=== PATIENT | male | born 1945 | race Caucasian/White ===

== ENCOUNTER → 2023-04-25 10:41 | Outpatient (REF) | payer MEDICARE, SELFPAY | LOC: HWRAD 10:41 | PROVIDERS: ATTENDING PHYSICIAN Specialist; FAMILY PHYSICIAN Internal Medicine | DX: N28.89 Other specified disorders of kidney and ureter (principal) | CPT/HCPCS: 76775 ==

== ENCOUNTER → 2023-06-18 11:32 | Outpatient (REF) | payer MEDICARE, SELFPAY | LOC: DHCBS MAIN 11:32 | PROVIDERS: ATTENDING PHYSICIAN Internal Medicine Cardiovascular Disease; FAMILY PHYSICIAN Internal Medicine | DX: I25.118 Atherosclerotic heart disease of native coronary artery with other forms of angina pectoris (principal); I35.0 Nonrheumatic aortic (valve) stenosis | CPT/HCPCS: 93306 ==

== ENCOUNTER 2023-09-07 15:38 | Inpatient (IN) | payer MEDICARE, SELFPAY ==
[2023-09-07 09:50] VITALS: BP 121/69
[2023-09-07 10:35] LABS: % Basophils 0.5 % (0-2); % Eosinophils 0.9 % (0-6); % Immature Granulocytes 0.3 % (0-0.5); % Lymphocytes 9.2 % (20.5-51.1); % Monocytes 9.2 % (1.7-9.3); % Neutrophils 79.9 % (42.2-75.2); Absolute Basophils 0.1 10^3/uL (0-0.2); Absolute Eosinophils 0.1 10^3/uL (0-0.7); Absolute Neutrophils 8.5 10^3/uL (1.4-6.5); Hematocrit 34.3 % (39.0-52.0); Hemoglobin 12.1 g/dL (13.0-18.0); Mean Corp Hgb Conc. 35.3 g/dL (33.0-37.0); Mean Corpuscular Hgb 31.4 pg (27.0-31.0); Mean Corpuscular Volume 89.1 fL (80.0-94.0); Mean Platelet Volume 9.3 fL (7.4-10.4); Nucleated Red Blood Cells % 0 % (-); Platelet Count 245 10^3/uL (130-400); Red Blood Cell Count 3.85 10^6/uL (4.70-6.10); Red Cell Dist. Width 13.4 % (11.5-14.5); White Blood Cell Count 10.6 10^3/uL (4.8-10.8)
[2023-09-07 10:45] LABS: ALT (SGPT) 17 U/L (0-50); AST (SGOT) 27 U/L (17-59); Albumin 4.1 g/dl (3.5-5.0); Alkaline Phosphatase 108 U/L (38-126); Blood Urea Nitrogen 19 mg/dl (9-20); Calcium 9.4 mg/dl (8.4-10.2); Carbon Dioxide 25 mmol/L (22-30); Chloride 103 mmol/L (98-107); Glucose 100 mg/dl (70-99); Lipase 48 U/L (23-300); Sodium 138 mmol/L (135-145); Total Bilirubin 0.6 mg/dl (0.2-1.3); Total Protein 6.8 g/dl (6.3-8.2); eGFR 56.58
[2023-09-07] MEDS: OMNIPAQUE 50 ML PO (11:00)
--- NOTE | 2023-09-07 11:09 | ED.GENMED ---
History of Present Illness
General
Chief Complaint: Abdominal Symptoms
Source: patient, records, spouse, previous radiology exam and previous hospital records
Exam Limitations: none
Time Seen by Provider: 09/07/23 10:35
Nursing documentation reviewed up to this point in time: agreed with
Travel History
Have you had any contact with someone who has COVID-19?: No
Do you have any symptoms of coronavirus? Fever > 100 degrees, chills, cough, shortness of breath, sore throat, loss of taste or smell, muscle aches, or headache?: No
History of Present Illness
History of Present Illness:
78-year-old male history of ulcerative colitis status post resection by Dr. Brennan has ostomy, presents with abdominal pain and loose stool after eating for 3 to 4 days somewhat reminiscent of his prior C. difficile although he does not have a
malodorous smell, no fevers but he has having sweats, states he is not eating very much because when he eats he gets symptoms,
Past History
Past History
ED Past Medical History: CAD, HTN, Valvular disease and Other (Ulcerative colitis)
ED Past Surgical History: Bowel resection and Orthopedic
Social History
Tobacco: Former smoker
Alcohol: Occasional
Drug: None
Personal:
Living: with family
Employment: Retired
Family History
Family History: Other (Noncontributory)
Review of Systems
Review of Systems
All Other Systems: Not applicable
Constitutional: Reports fatigue and chills; Denies fever
EENT: Reports no symptoms
Respiratory: Reports no symptoms
Cardiac: Denies chest pain
ABD/GI: Reports abdominal pain and diarrhea; Denies nausea or constipated
: Reports no symptoms
Musculoskeletal: Reports no symptoms
Skin: Reports no symptoms
Neurological: Reports weakness
Endocrine: Reports no symptoms
Hematologic/Lymphatic: Reports no symptoms
Phy Exam
Physical Exam
Physical Exam:
Physical Exam
General: Nontoxic elderly man
Neck: Lips are slightly dry
Heart: s1/s2 regular rate and rhythm, no murmur. equal radial pulses.
Lungs: no acute respiratory distress. clear bilaterally
Abdomen: Soft mild diffuse tenderness ostomy looks patent but red stoma no stool in the bag
Neuro: alert and oriented. no focal neurological deficits
Skin: no rash
Psychiatric: well kept. interactive and cooperative
Extremities: no edema. no calf tenderness. negative homans. good distal pulses
Course
Orders/Labs/Results
Orders:
Orders
09/07/23 10:27
C-Reactive Protein Urgent
Comment: add-on
CMP [Comprehensive Metabolic Panel] Urgent
Complete Blood Count/With Diff Urgent
Erythrocyte Sed Rate Urgent
Comment: ADD=ON
Lipase Urgent
09/07/23 10:35
STOOL [C difficile Antigen & Toxins] Urgent
DIRK Source: Feces/Stool
Specimen Description:
Date Specimen was Collected: 09/07/23
Time Specimen was Collected: 14:33
Stool Culture Urgent
DIRK Source: Feces/Stool
Specimen Description:
Date Specimen was Collected: 09/07/23
Time Specimen was Collected: 14:33
09/07/23 10:57
CT Abd/pel W Iv And Oral Contr Urgent
Comment:
Reason For Exam: post [ramdoa; [aom
Iohexol [Omnipaque] See Protocol PO NOW STA
09/07/23 10:58
0.9% Sodium Chloride 1000 ml [Nss] 1,000 ml IV BOLUS
09/07/23 14:34
Add On- LAB Urgent
Tests Added?: esr/crp
Abnormal Lab Results
09/07/23
10:27
RBC 3.85 L 10^6/uL
(4.70-6.10)
Hgb 12.1 L g/dL
(13.0-18.0)
Hct 34.3 L %
(39.0-52.0)
MCH 31.4 H pg
(27.0-31.0)
Absolute Neuts (auto) 8.5 H 10^3/uL
(1.4-6.5)
Absolute Lymphs (auto) 1.0 L 10^3/uL
(1.2-3.4)
Absolute Monos (auto) 1.0 H 10^3/uL
(0.1-0.6)
Neutrophils % 79.9 H %
(42.2-75.2)
Lymphocytes % 9.2 L %
(20.5-51.1)
Glucose 100 H mg/dl
(70-99)
09/07/23 10:27
09/07/23 10:27
Vital Signs
Initial and Last Documented VS:
Initial Vital Signs
Temp Pulse Resp BP Pulse Ox
98.2 F 83 16 121/69 99
09/07/23 09:50 09/07/23 09:50 09/07/23 09:50 09/07/23 09:50 09/07/23 09:50
Last Documented Vital Signs
Temp Pulse Resp BP Pulse Ox
98.2 F 77 16 120/70 99
09/07/23 09:50 09/07/23 13:57 09/07/23 13:57 09/07/23 13:57 09/07/23 13:57
MDM/Problems Addressed
Differential Diagnosis Includes:
Colitis, enteritis, C. difficile, other
MDM/Problems Addressed:
Abdominal pain, diarrhea
Chronic conditions affecting care:
Ulcerative colitis status postresection
Chronic conditions affecting care: Previous abdomnial surgery
Acute Exacerbation and/or Progression of Chronic Illness:
Ulcerative colitis status post resection
Acute Exacerbation and/or Progression of Chronic Illness: Previous abdomnial surgery
*Critical Care Note
Total Time (30-74mins, 75-104mins- exclusive of procedures): Not Applicable
Update Note
Update Note:
2:[address] report noted labs noted, do not suspect this is appendicitis, suspect more colitis, symptoms or diarrhea postprandial pain
Will hold on antibiotics until we get his culture back he was just able to give a specimen patient states has been unable to eat, complex past medical history advanced age suspect we recommend the hospital
ED Attending Note
-
Portions of this chart may have been created with voice recognition software.� Occasional wrong word or��sound alike� substitutions may have occurred due to the inherent limitations of voice recognition software.
Discharge Plan
Departure
Patient Disposition: Admit
Date of Disposition: 09/07/23
Time of Disposition: 14:44
Admit to: Med/Surg
Presentation/result/management discussed w/ accepting MD/DO: Hospitalist
Condition: Good
Discharge Problem:
Ulcerative colitis
Prescriptions:
No Action
atorvastatin 80 MG tablet
80 mg PO HS
tamsulosin 0.4 MG capsule
0.4 mg PO DAILY
escitalopram oxalate 10 MG tablet
10 mg PO DAILY
calcium carbonate [Oyster Shell Calcium 500] 500 MG tablet
1,000 mg PO QPM
allopurinol 100 MG tablet
200 mg PO HS
solifenacin 5 MG tablet
5 mg PO DAILY
MegaRed Advanced [place]-3 Algae 1 EACH capsule
2 ea PO DAILY
Hold Instructions: Resume on 05/29/22.
psyllium husk 0.52 gram Capsule
1.04 g PO TID
amlodipine 2.5 MG tablet
2.5 mg PO DAILY Qty: 30 0RF
Rx Instructions:
HOLD if systolic blood pressure <130 while on Oxycodone.
cetirizine [Aller-Sulema] 10 mg Tablet
10 mg PO DAILY
Centrum Silver Tablet
1 tab PO DAILY
mesalamine 1.2 gram Tablet,Delayed Release (Dr/Ec)
2.4 g PO DAILY
triamcinolone acetonide 0.147 mg/gram Aerosol
1 spray TOPICAL DAILY
aspirin 81 mg Capsule
81 mg PO DAILY
Probiotic
1 tab PO DAILY
acetaminophen 325 MG tablet
650 mg PO Q4HWA PRN (Reason: pain)
Rx Instructions:
DO NOT exceed >4000 mg daily.
senna 8.6 mg capsule
17.2 mg PO DAILY
Referrals:
Shane Gusman MD [Family Provider] -
Interventions
Interventions:
*Risk Screen - Suicide Last Done: 09/07/23 09:59
*Neglect/Abuse Screening Last Done: 09/07/23 09:59
ED- Fall Risk Assessment Last Done: 09/07/23 10:25
*ED COVID-19 Vaccine History Last Done: 09/07/23 09:50
KL-Kbvpls-Tfazsahckx Assessment Last Done: 09/07/23 10:24
Discharge Date and Time
Print Language: THAI
[2023-09-07] MEDS: NSS 1000 IV ×3 (11:12→20:40)
[2023-09-07 13:57] VITALS: BP 120/70
--- NOTE | 2023-09-07 14:48 | HPS.HSE ---
Family Physician
-
Family Physician: Shane Gusman
Chief Complaint
-
abd pain
History of Present Illness
78-year-old man with a history of ulcerative colitis (status post resection by Dr. Brennan, has ostomy), presents with abdominal pain and loose stool after eating, for 3 to 4 days. Symptms are reminiscent of his prior C. difficile infection. No
fevers, but he has been having sweats, states he is not eating very much because when he eats he gets symptoms. In the ED, the CT showed:
Mild colonic wall thickening/colitis is suggested most pronounced involving the transverse colon and descending colon.
No evidence of pneumatosis. No evidence of bowel obstruction.
Mild circumferential thickening at the origin of the appendix at the posterior inferior margin of the cecum.
The remainder of the appendix demonstrates a small amount of fluid within the lumen
top normal in diameter measuring approximately 6.5 mm without additional wall thickening or periappendiceal soft tissue stranding.
This may be related to minor inflammatory thickening of the cecum, as opposed to primary appendiceal thickening/appendicitis.
Minimal/trace free fluid in the pelvis. No focal collection or abscess.
Stable small, 12 mm right renal lesion. Although difficult to fully characterize based on small size, this most likely represents a complex (hemorrhagic or proteinaceous) cyst.
Hypovascular solid mass not entirely excluded, though felt to be less likely.
Anterior left abdominal wall diverting colostomy.
Small umbilical hernia containing fat measuring 2 cm.
Stable small hepatic cysts and small hiatal hernia.
During my exam he was comfortable and had no new complaints.
Medical History
Past Medical History
Past Medical History: Reports Other
Additional Past Medical History:
CAD,
essential HTN,
Valvular disease
Ulcerative colitis
Bowel resection
Orthopedic surgery
Ulcerative rectosigmoiditis with rectal bleeding
Mitral regurgitation and aortic stenosis
Elevated prostate specific antigen
Degenerative lumbar spinal stenosis
Chronic left lumbar radiculopathy
C. difficile colitis
GOUT
hyperlipedimia
Past Surgical History: Reports Other
Additional Past Surgical History:
See above
Social History
Tobacco: Non-smoker
Alcohol: Occasional
Drug: None
Personal:
Living: With Family
Family History
Family History: Not pertinent
Allergies / Home Medications
Allergies reflects when Allergies were last updated in [facility].
Home Medications with original date entered in [facility]
Allergy/Medication List:
Allergies
Allergy/AdvReac Type Severity Reaction Status Date / Time
chlorhexidine Allergy Rash Verified 09/07/23 09:52
clopidogrel [From Plavix] Allergy Itching Verified 09/07/23 09:52
nabumetone Allergy Hives Verified 09/07/23 09:52
naproxen Allergy stay awasy Verified 09/07/23 09:52
from due
ulcertive
colitis
NSAIDS (Non-Steroidal Allergy 'stays Verified 09/07/23 09:52
Anti-Inflamma away from
these due
to
ulcerative
colitis'
povidone-iodine Allergy Rash Verified 09/07/23 09:52
[From Betadine]
Home Medications
atorvastatin 80 mg tablet 80 mg PO HS High cholesterol 01/13/18
escitalopram oxalate 10 mg tablet 10 mg PO DAILY Gastrointestinal issue 01/13/18
tamsulosin 0.4 mg capsule 0.4 mg PO DAILY Urinary issue 01/13/18
calcium carbonate (Oyster Shell Calcium 500) 1,000 mg PO QPM Supplement 04/30/18
allopurinol 100 mg tablet 200 mg PO HS Gout 05/22/20
omega-3s 330 mg-dha and epa 300 mg-algal oil 600 mg capsule (MegaRed Advanced [place]-3 Algae) 2 ea PO DAILY Supplement 05/22/20
solifenacin 5 mg tablet 5 mg PO DAILY Urinary issue 05/22/20
psyllium husk 0.52 gram capsule 1.04 g PO TID 05/14/22
amlodipine 2.5 mg tablet 2.5 mg PO DAILY Blood pressure #30 tabs 05/22/22
Probiotic 1 tab PO DAILY 09/07/23
acetaminophen 325 mg tablet 650 mg PO Q4HWA PRN pain 09/07/23
aspirin 81 mg capsule 81 mg PO DAILY 09/07/23
cetirizine 10 mg tablet (Aller-Sulema) 10 mg PO DAILY 09/07/23
mesalamine 1.2 gram tablet,delayed release 2.4 g PO DAILY 09/07/23
bwokqpxwsiju-nmdkjdzo-muuehw tablet 1 tab PO DAILY 09/07/23
sennosides 8.6 mg capsule (senna) 17.2 mg PO DAILY 09/07/23
triamcinolone acetonide 0.147 mg/gram topical aerosol 1 spray topical DAILY 09/07/23
Review of Systems
-
History Source: Patient
A 12 point ROS was completed and negative except as noted: Yes
Physical Exam
Vital Signs
Vital Signs
Temp Pulse Resp BP Pulse Ox
98.2 F 77 16 120/70 99
09/07/23 09:50 09/07/23 13:57 09/07/23 13:57 09/07/23 13:57 09/07/23 13:57
Physical Exam
General: Well Developed, Well Nourished, No Apparent Distress, Comfortable and Conversant
HEENT: NormoCephalic, Moist mucous membranes, Atraumatic, No Ptosis, Nose Appears Normal and Ears Appear Normal
Respiratory: Clear
Cardiac: S1/S2, Regular Rhythm and Murmur
GI: Soft, Non Tender and Non Distended
Musculoskeletal: No Clubbing, No Cyanosis and No Edema
Skin: Warm and Dry; No Rash or Jaundice
Neuro: Awake, Alert, Oriented and AO x 3
Psych: Calm
Laboratory Results
-
09/07/23 10:27
09/07/23 10:27
Laboratory Results
Total Bilirubin 0.6 mg/dl (0.2-1.3) 09/07/23 10:27
AST 27 U/L (17-59) 09/07/23 10:27
ALT 17 U/L (0-50) 09/07/23 10:27
Alkaline Phosphatase 108 U/L (38-126) 09/07/23 10:27
Lipase 48 U/L (23-300) 09/07/23 10:27
Data Reviewed
-
Lab Data: Labs Reviewed by me
Impression/Plan
-
IMPRESSION:
78man wtih complex GI history comes in with colitis. Pertinent CT findings:
Mild colonic wall thickening/colitis is suggested most pronounced involving the transverse colon and descending colon.
No evidence of pneumatosis. No evidence of bowel obstruction.
Mild circumferential thickening at the origin of the appendix at the posterior inferior margin of the cecum.
The remainder of the appendix demonstrates a small amount of fluid within the lumen
top normal in diameter measuring approximately 6.5 mm without additional wall thickening or periappendiceal soft tissue stranding.
This may be related to minor inflammatory thickening of the cecum, as opposed to primary appendiceal thickening/appendicitis.
Minimal/trace free fluid in the pelvis. No focal collection or abscess.
Stable small, 12 mm right renal lesion. Although difficult to fully characterize based on small size, this most likely represents a complex (hemorrhagic or proteinaceous) cyst.
Hypovascular solid mass not entirely excluded, though felt to be less likely.
Anterior left abdominal wall diverting colostomy.
Small umbilical hernia containing fat measuring 2 cm.
Stable small hepatic cysts and small hiatal hernia.
PLAN:
1. Colitis. Check for c-diff toxin
If toxin positive --> po and IV vancomycin
If toxin negative --> discuss case with GI for best abx (given h/o multiple c-diff episodes)
GI consult
NPO for now, advance to clears once tolerated
If C-diff neg, motility control
IV fluids while NPO
Full code
VCD for DVTp
[2023-09-07 15:06] LABS: Erythrocyte Sed Rate 32 mm/hour (0-20)
--- NOTE | 2023-09-07 16:45 | PTCARENOTE ---
09/06- Patient transferred and oriented to unit without issue. Patient on Contact Precautions d/t CDiff Infection; AAOX3, Skin CDI, Patient fully independent. Colostomy stoma pink, with ostomy side CDI, draining liquid bowens stool. Patient has
without complaints at this time.
[2023-09-07 17:04] VITALS: BP 136/75; BMI 27.4
[2023-09-07] MEDS: FLOMAX 0.400000000000000022 MG PO (17:25)
[2023-09-07] MEDS: NORVASC 2.5 MG PO (17:26)
[2023-09-07] MEDS: VISBIOME 1 CAP PO (17:26)
[2023-09-07] MEDS: ZYLOPRIM 200 MG PO (17:31)
[2023-09-07] MEDS: ASACOL, DELZICOL DR 2400 MG PO (17:32)
[2023-09-07] MEDS: OSCAL CAL 500 1000 MG PO (17:33)
[2023-09-07] MEDS: QUESTRAN 4 GRAM PO ×2 (17:34→20:24)
[2023-09-07] MEDS: VESICARE 5 MG PO (17:35)
[2023-09-07] MEDS: FIRVANQ 500 MG PO ×2 (18:02→23:16)
[2023-09-07] MEDS: LIPITOR 80 MG PO (22:32)
[2023-09-07] MEDS: METAMUCIL, KONSYL 1 PACKET PO (22:32)
[2023-09-07] MEDS: FLAGYL 500 MG 100 IV (23:16)
[2023-09-07 23:27] VITALS: BP 133/57
[2023-09-08] MEDS: FIRVANQ 500 MG PO ×4 (05:43→23:02)
[2023-09-08 07:00] VITALS: BP 114/62
[2023-09-08 07:01] LABS: Hematocrit 31.5 % (39.0-52.0); Hemoglobin 10.6 g/dL (13.0-18.0); Mean Corp Hgb Conc. 33.7 g/dL (33.0-37.0); Mean Corpuscular Hgb 31.3 pg (27.0-31.0); Mean Corpuscular Volume 92.9 fL (80.0-94.0); Mean Platelet Volume 9.3 fL (7.4-10.4); Platelet Count 224 10^3/uL (130-400); Red Blood Cell Count 3.39 10^6/uL (4.70-6.10); Red Cell Dist. Width 13.2 % (11.5-14.5); White Blood Cell Count 7.7 10^3/uL (4.8-10.8)
[2023-09-08 07:45] LABS: Blood Urea Nitrogen 14 mg/dl (9-20); Calcium 9.1 mg/dl (8.4-10.2); Carbon Dioxide 26 mmol/L (22-30); Chloride 105 mmol/L (98-107); Estimated Creatinine Clearance 53 ml/min; Glucose 79 mg/dl (70-99); Potassium 4.2 mmol/L (3.5-5.1); Sodium 139 mmol/L (135-145); eGFR > 60.00
--- NOTE | 2023-09-08 08:47 | W.PN.HOSP.TC ---
Addendum entered and electronically signed by Jose Lazo MD 09/08/23 18:16:
RN reports he had some cp and used nitro and now cp improved. Obtain ekg and trend trop.
Original Note:
Today's Communication/Plan
-
Cont vanco/metronidazole
Assessment / Plan
Assessment / Plan
Physical exam:
General: Well Developed, Well Nourished and No Apparent Distress
HEENT: Normocephalic, Atraumatic and Moist Mucous Membranes
Respiratory: Clear to Auscultation; Negative Wheezes, Rales or Rhonchi
Cardiac: Regular Rhythm and S1/S2
GI: Soft, Nontender and Nondistended
Musculoskeletal: No Clubbing, No Cyanosis and No Edema
Neuro: Awake, Alert and Oriented
Psych: Calm
A/P:
78man wtih complex GI history comes in with colitis. Pertinent CT findings:
Mild colonic wall thickening/colitis is suggested most pronounced involving the transverse colon and descending colon.
No evidence of pneumatosis. No evidence of bowel obstruction.
Mild circumferential thickening at the origin of the appendix at the posterior inferior margin of the cecum.
The remainder of the appendix demonstrates a small amount of fluid within the lumen
top normal in diameter measuring approximately 6.5 mm without additional wall thickening or periappendiceal soft tissue stranding.
This may be related to minor inflammatory thickening of the cecum, as opposed to primary appendiceal thickening/appendicitis.
Minimal/trace free fluid in the pelvis. No focal collection or abscess.
Stable small, 12 mm right renal lesion. Although difficult to fully characterize based on small size, this most likely represents a complex (hemorrhagic or proteinaceous) cyst.
Hypovascular solid mass not entirely excluded, though felt to be less likely.
Anterior left abdominal wall diverting colostomy.
Small umbilical hernia containing fat measuring 2 cm.
Stable small hepatic cysts and small hiatal hernia.
PLAN:
1. Colitis. Check for c-diff toxin and came back positive --> po vancomycin high doses 500 mg every 6 hours and IV Flagyl. Would deescalate soon but given recurrent history keep the same for now.
-Patient tells me he has history of about 5 times episodes of C. difficile. He is going through vancomycin, Dificid, and also fecal transplant at [place] x 2.
-f/u GI further recommendations
-GI consulted
CLD--> advance to Full Liquid today
IV fluids to stop
Complex Past Medical hx--> stable co-morbidities for now.
Full code
VCD for DVTp
Anticipated Discharge: > 48 hours
Subjective/Interval History
-
Date of Service: September 08, 2023
Still having diarrhea today. Overall feels better.
Objective Data
-
Labs:
Laboratory Results
09/08/23
06:18
WBC 7.7
Hgb 10.6 L
Hct 31.5 L
Plt Count 224
Sodium 139
Potassium 4.2
Chloride 105
Carbon Dioxide 26
BUN 14
Creatinine 1.2
Glucose 79
Calcium 9.1
Vital Signs:
Vital Signs
Temp Pulse Resp BP Pulse Ox
98.0 F 64 14 114/62 95
09/08/23 07:00 09/08/23 07:00 09/08/23 07:00 09/08/23 07:00 09/08/23 07:00
I&O
09/07/23 09/08/23 09/09/23
06:59 06:59 06:59
Intake Total 1100 / 1100
Output Total 40 / 40
Balance 1060 / 1060
[2023-09-08] MEDS: ZYRTEC 10 MG PO (08:57)
[2023-09-08] MEDS: ASPIR LOW (ENTERIC COATED) 81 MG PO (08:57)
[2023-09-08] MEDS: THERAGRAN 1 TABLET PO (08:57)
[2023-09-08] MEDS: QUESTRAN 4 GRAM PO (08:57)
[2023-09-08] MEDS: FLAGYL 500 MG 100 IV ×3 (08:57→23:02)
[2023-09-08] MEDS: METAMUCIL, KONSYL 1 PACKET PO ×2 (08:57→17:24)
[2023-09-08] MEDS: LEXAPRO 10 MG PO (08:57)
--- NOTE | 2023-09-08 10:27 | CM ---
national facilities manager reviewed patient's chart and met with patient and patient lives with his spouse in a 2 story home, per patient has has master bed and bathroom on 1st floor, patient is independent with adl's and ambulation, no dme, patient drives,
patient has a prescription plan and uses [facility] pharmacy.
PCP: Dr. Gusman
Plan; Home with spouse when stable.
--- NOTE | 2023-09-08 13:08 | WOUNDNOTE ---
DES RN NOTE: Asked to see patient for ostomy needs. End Colostomy done [address] Brennan. Patient is independent with care, has own supplies and no issues with leakage or skin damage. Will sign off, nurse Carrie lambert.
--- NOTE | 2023-09-08 15:18 | CON.GI ---
Addendum entered and electronically signed by Carlos Mota MD 09/08/23 17:51:
I saw and examined the patient.
The COVER INSPECTOR's note was reviewed and I agree with the note.
-- C. difficile colitis with recent abx use
-- History of UC s/p bowel resection with end colostomy. clinical remission On Lialda
plan
Patient was started on vancomycin/Flagyl by medical team. Will continue it for now. Awaiting ID eval.
Full liquid diet
Adequate hydration
Monitor stool frequency
Continue mesalamine
Original Note:
Consultation
-
Date/Time Consultation Requested: 09/07/23 1650
Date/Time Consultation Performed: 09/08/23 1500
Requesting Provider: Dr. Moran
Performing Provider: Dr. Mota/BYRON Young
Reason for Consultation: Cdiff
Medical History
Chief Complaint / HPI
Chief Complaint: diarrhea
History of Present Illness:
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
hernia, history of C. difficile s/p FMT x 2, CAD, aortic stenosis, asthma, GERD, BPH, gout, hyperlipidemia, recent right ear infection status posttreatment with 'Z-Kevyn' in June who presents to the emergency room with multiple episodes of diarrhea.
Asked to evaluate for C. difficile colitis. The patient states that he was treated for a right ear infection with Z-Kevyn in June by an ENT. He did not go on vancomycin prophylactically during this time. He did not call our office or his PCPs
office. He does take a daily probiotic. He has not had any issues with his bowels since that time. He states he usually has either no bowel movement or up to 3 solid bowel movements daily. He is on Lialda for history of proctosigmoiditis. He
will occasionally see mucus in his stoma. He states that he started passing hard balls of stool a couple days prior. Following this he started having multiple episodes of abdominal cramping followed by watery bowel movements. This was then
reminiscent of the time he has had C. difficile. He kept feeling his ostomy bag multiple times yesterday. Today was foul-smelling but less in quantity. The patient was started on vancomycin as well as Flagyl. He has been treated by infectious
disease in the past. He states he even went down to the 'infusion room'. He has had 2 FMT's in the past. The patient states that he usually does best on vancomycin. He was started on Dificid in the past for presumed C. difficile in January
2021. He denies any fevers, chills, nausea, vomiting, melena, hematochezia, dysphagia or dyne aphasia. He denies any early satiety or unintentional weight loss. He currently has a small amount of light brown liquid stool in his ostomy bag. Stool
is positive for toxigenic C. difficile. WBC 7.7 down from 10.6, hemoglobin 10.6, hematocrit 31.5, platelets 224, ESR 32, CRP 51.3, sodium 139, potassium 4.2, chloride 105, CO2 26, BUN 14, creatinine 1.2
Past Medical History
Past Medical History: Other (Mild stenosis, right carotid bulb.�����Asthma.�����GERD.�����Ulcerative colitis.�����Benign prostatic hyperplasia.�����Hypertension.�����Aortic sclerosis.�����Mitral regurgitation.�����recurrent C. difficile w/ fecal
transplant x2.�����Lower back disc issues.�����Anxiety.�����Gout.�����Torn rotator )
Past Surgical History: Other (Left knee repair-1965�����Bilat cataract repair 2009�����Bilat carpal tunnel repair 2004�����Right rotator cuff repair 03/2012�����DTH Cardiac Catherization 03/2017�����Flex sigmoidoscopy 11/2017�����fecal transplant x
2 at [facility] Jan 2018 & Mar 2018�����Left L4 and L5 TFESI 06/09/2018�����Bilateral )
Social History
Tobacco: Non-Smoker
Alcohol: None
Drug: None
Personal:
Living: With Family
Family History
Family History: Other (No fam Hx GI malignancy or IBD)
Allergies / Home Medications
Allergy/AdvReac Type Severity Reaction Status Date / Time
chlorhexidine Allergy Rash Verified 09/07/23 09:52
clopidogrel [From Plavix] Allergy Itching Verified 09/07/23 09:52
nabumetone Allergy Hives Verified 09/07/23 09:52
naproxen Allergy stay awasy Verified 09/07/23 09:52
from due
ulcertive
colitis
NSAIDS (Non-Steroidal Allergy 'stays Verified 09/07/23 09:52
Anti-Inflamma away from
these due
to
ulcerative
colitis'
povidone-iodine Allergy Rash Verified 09/07/23 09:52
[From Betadine]
�Medication �Instructions �Recorded
atorvastatin 80 mg tablet 80 mg PO HS High cholesterol 01/13/18
escitalopram oxalate 10 mg tablet 10 mg PO DAILY Depression 01/13/18
tamsulosin 0.4 mg capsule 0.4 mg PO QPM Urinary issue 01/13/18
allopurinol 100 mg tablet 200 mg PO QPM Gout 05/22/20
solifenacin 5 mg tablet 5 mg PO QPM Urinary issue 05/22/20
Lactobac no.2-Bifidobac no.1-S. 1 cap PO QPM Supplement 09/07/23
thermo 112.5 billion cell capsule
(Visbiome)
Metamucil 2 cap PO TID Constipation 09/07/23
amlodipine 2.5 mg tablet 2.5 mg PO QPM Blood pressure 09/07/23
aspirin 81 mg tablet,delayed 81 mg PO DAILY Blood Clot 09/07/23
release Prevention/Tx
calcium carbonate 1,000 mg PO QPM Supplement 09/07/23
cetirizine 10 mg tablet (Aller-Sulema) 10 mg PO DAILY Allergies 09/07/23
mesalamine 1.2 gram tablet,delayed 2.4 g PO QPM Gastrointestinal Issue 09/07/23
release
ljrjdpxdwong-fwrridlj-oilkgu tablet 1 tab PO DAILY Supplement 09/07/23
sennosides 8.6 mg tablet (senna) 17.2 mg PO QPM Constipation 09/07/23
varenicline 0.03 mg/spray nasal 1 spray intranasal BID Dry eye 09/07/23
spray (Tyrvaya) disase
Review of Systems
-
All other systems: A 12 pt ROS was Negative except as stated above in HPI
Vital Signs
Temp Pulse Resp BP Pulse Ox
98.0 F 64 14 114/62 95
09/08/23 07:00 09/08/23 07:00 09/08/23 07:00 09/08/23 07:00 09/08/23 07:00
Physical Exam
Exam
General: No Apparent Distress
HEENT: Anicteric
Respiratory: Clear (Anterior)
Cardiac: Regular Rhythm
GI: Soft, Non Tender, Non Distended, Normal Bowel Sounds and Other (Ostomy left sided, small amount of light brown liquid stool, small amount of mucus and tissue)
Skin: Warm and Dry
Neuro: AO x 3
Psych: Calm
Results
WBC 7.7 10^3/uL (4.8-10.8) 09/08/23 06:18
Hgb 10.6 g/dL (13.0-18.0) L 09/08/23 06:18
Hct 31.5 % (39.0-52.0) L 09/08/23 06:18
MCV 92.9 fL (80.0-94.0) 09/08/23 06:18
Plt Count 224 10^3/uL (130-400) 09/08/23 06:18
Absolute Neuts (auto) 8.5 10^3/uL (1.4-6.5) H 09/07/23 10:27
Sodium 139 mmol/L (135-145) 09/08/23 06:18
Potassium 4.2 mmol/L (3.5-5.1) 09/08/23 06:18
Chloride 105 mmol/L (98-107) 09/08/23 06:18
Carbon Dioxide 26 mmol/L (22-30) 09/08/23 06:18
BUN 14 mg/dl (9-20) 09/08/23 06:18
Creatinine 1.2 mg/dL (0.7-1.3) 09/08/23 06:18
Calcium 9.1 mg/dl (8.4-10.2) 09/08/23 06:18
Total Bilirubin 0.6 mg/dl (0.2-1.3) 09/07/23 10:27
AST 27 U/L (17-59) 09/07/23 10:27
ALT 17 U/L (0-50) 09/07/23 10:27
Alkaline Phosphatase 108 U/L (38-126) 09/07/23 10:27
Lipase 48 U/L (23-300) 09/07/23 10:27
Diagnostic Image Results:
CT Abd/Pelvis with IV/Oral contrast:
IMPRESSION:
Mild colonic wall thickening/colitis is suggested most pronounced involving the transverse colon and descending colon. No evidence of pneumatosis. No evidence of bowel obstruction.
Mild circumferential thickening at the origin of the appendix at the posterior inferior margin of the cecum. The remainder of the appendix demonstrates a small amount of fluid within the lumen, top normal in diameter measuring approximately 6.5 mm
without additional wall thickening or periappendiceal soft tissue stranding. This may be related to minor inflammatory thickening of the cecum, as opposed to primary appendiceal thickening/appendicitis. Recommend clinical correlation.
Minimal/trace free fluid in the pelvis. No focal collection or abscess.
Stable small, 12 mm right renal lesion. Although difficult to fully characterize based on small size, this most likely represents a complex (hemorrhagic or proteinaceous) cyst. Hypovascular solid mass not entirely excluded, though felt to be less
likely. Recommend continued imaging surveillance.
Anterior left abdominal wall diverting colostomy.
Small umbilical hernia containing fat measuring 2 cm.
Stable small hepatic cysts and small hiatal hernia.
Prior GI Procedures:
---02/2022 - ER for shingles: CT scan - large amount of large, no bowel wall thickening, small parastomal hernia.�������
----12/2021 Colonoscopy through the stoma for history of ulcerative proctocolitis currently on 2 of Lialda with blood in the stoma: Adequate prep after significant lavage. End sigmoid colostomy with inflammation at the first 3 cm with biopsies
consistent with chronic active colitis possibly irritation from the stoma site. We will treat with topical steroid. Otherwise endoscopically normal to the cecum with normal biopsies throughout. Normal terminal ileum.�������
----10/2020 Colonoscopy through ostomy for hx of UC and ICV adenoma: Adequate prep to the terminal ileum. Healthy-appearing colon throughout with normal biopsies throughout with no evidence of acute or chronic colitis. Normal terminal ileum. No
evidence of remaining adenoma on the IC valve. Repeat colonoscopy in 2 years. Continue 2 pills of mesalamine for maintenance of remission�������
----04/2020: colonoscopy with Srinivasa: ileocecal valve, 8 mm adenoma with low-grade dysplasia, few small cecal pseudopolyps, endoscopically no inflammation. biopsies in the cecum showed chronic colitis, negative for dysplasia�������
----02/2020 colonoscopy Chronic refractory ulcerative proctitis. On Lialda and Stelara: poor prep to the terminal ileum. Large amount of stool throughout the colon. Stool negative for C. difficile. Severe inflammation up to 15 cm. Moderately
ulcerated stenosis at 10 cm from the anal verge. Biopsies showed severe active colitis but no dysplasia. Proximal to 15 cm was endoscopically normal. Difficult to view ileocecal valve polyp biopsied with low-grade dysplasia. Unable to remove. Should
be endoscopically removable with Dr. Bernabe if needed. Appt with Colorectal tomorrow.
--Last Entyvio 04/21/19.�Taking 4 Lialda, enemas as tolerated. Vanco 250mg once daily.������
--overnight stay on 05/04/18 for recurrent C. difficile�.No abdominal pain, cramping, nocturnal symptoms.�������
--Prior therapy: steroids and 5 ASA, Asacol 2400 mg tid , Uceris 9mg daily and Canasa. Humira�������
--Entyvio q6wks, Lialda 4 pills, tacro enemas (started 04/22/19)�������
--Prior cdiff x 4��s/P fecal transplant with Dr. Dixon on 02/06/18 and again on 03/27/18.�The best he has done was after his 1st fecal tranplant in Jan. He had 2 weeks with formed stools then the cdiff returned
�--03/2019 flexible sigmoidoscopy, chronic ulcerative proctosigmoiditis on Entyvio q6wks, steroid suppositories and Vanco for C. difficile suppression.�������mild rectal stricture on digital rectal exam. Severe, Beckman 3 from anus to rectum, normal
mucosa from 16-40 cm proximal to the anus.�biopsies: All negative for CMV, negative for dysplasia. Rectal biopsies up to 15 cm are moderate to severe chronic active colitis with ulceration and granulation tissue. 25 cm mild chronic inflammation, no
active. 35 cm normal�PLAN: tacrolimus enemas and change biologic�������
--07/2018 Vedo level: 11.3�������
--04/30/18: +cdiff toxin with symptoms 10+loose BMs�������
--04/22/18: Humira level on once weekly: 26�������
--03/27/18: repeat FMT, no improvement�������
--02/06/18: [facility] with Dr. Dixon: colonoscopy. Inflammation found from anus to rectum, graded as July 24. Fecal microbiota transplant performed in the transverse descending and cecum. No specimens collected. Stopped vancomycin - did well for 2
weeks�������
--12/11/17 flex sig: marked chronic and active colitis cryptitis, ulceration and architectural distortion�������
--09/09/17, positive C. difficile colitis�������
--08/25/2017 MRI for persistently elevated alkaline phosphatase: normal-appearing biliary tree, no stenosis or dilation to suggest sclerosing cholangitis�������
---05/22/17: flexible sigmoidoscopy: moderate to severe ulcerative colitis from the rectum to his proximal as reached�������
---colonoscopy with Dr. Puente 2014 revealed ulcerative proctosigmoiditis without dysplasia.
Assessment / Plan
-
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
hernia, history of C. difficile s/p FMT x 2, CAD, aortic stenosis, asthma, GERD, BPH, gout, hyperlipidemia, recent right ear infection status posttreatment with 'Z-Kevyn' in June who presents to the emergency room with multiple episodes of diarrhea.
Asked to evaluate for C. difficile colitis.
Impression:
C. difficile colitis
Ulcerative proctosigmoiditis
Plan:
-Continue vancomycin p.o. for now. Patient hesitant to start Dificid. Would prefer to stay on Vanco at the present time.
-Recommend ID consultation, patient with multiple episodes of C. difficile refractory to treatment in the past.
-Continue full liquid diet
-Continue mesalamine
-Further recommendation to be forthcoming
Data Reviewed
-
CT Scan: Report Reviewed by me
Old Records: Reviewed
-
-
Thank you for consultation and allowing me to participate in the patient's care. Please call the conflict resolution professional GI physician during the after hours with any questions or concerns.
[2023-09-08 15:42] VITALS: BP 122/65
[2023-09-08] MEDS: NORVASC 2.5 MG PO (17:24)
[2023-09-08] MEDS: OSCAL CAL 500 1000 MG PO (17:24)
[2023-09-08] MEDS: VISBIOME 1 CAP PO (17:24)
[2023-09-08] MEDS: ASACOL, DELZICOL DR 2400 MG PO (17:24)
[2023-09-08] MEDS: ZYLOPRIM 200 MG PO (17:24)
[2023-09-08] MEDS: VESICARE 5 MG PO (17:24)
[2023-09-08] MEDS: FLOMAX 0.400000000000000022 MG PO (17:25)
--- NOTE | 2023-09-08 17:45 | PTCARENOTE ---
Pt noted to have a bottle of NTG sl on his bedside table. When questioned about it, pt stated he'd had chest pain at 5pm for approximately 10mins, that resolved on its own. He did not taken any NTG sl. Dr. Lazo made aware, EKG and troponin
ordered and done. Pt denies chest pain at present.
[2023-09-08] MEDS: NSS IV ×2 (18:20→18:21)
[2023-09-08 19:19] LABS: Troponin I < 0.012 ng/ml
[2023-09-08] MEDS: LIPITOR 80 MG PO (22:43)
[2023-09-08 23:02] VITALS: BP 132/66
[2023-09-08] MEDS: COMPAZINE 5 MG IV (23:02)
[2023-09-09 01:59] LABS: Troponin I < 0.012 ng/ml
[2023-09-09] MEDS: FIRVANQ 500 MG PO ×2 (05:21→11:23)
[2023-09-09 07:00] VITALS: BP 120/70
[2023-09-09 07:24] LABS: % Basophils 0.5 % (0-2); % Eosinophils 4.6 % (0-6); % Immature Granulocytes 0.3 % (0-0.5); % Lymphocytes 28.1 % (20.5-51.1); % Monocytes 10.6 % (1.7-9.3); % Neutrophils 55.9 % (42.2-75.2); Absolute Eosinophils 0.3 10^3/uL (0-0.7); Absolute Lymphocytes 1.7 10^3/uL (1.2-3.4); Absolute Monocytes 0.6 10^3/uL (0.1-0.6); Absolute Neutrophils 3.4 10^3/uL (1.4-6.5); Hematocrit 30.9 % (39.0-52.0); Hemoglobin 10.6 g/dL (13.0-18.0); Mean Corp Hgb Conc. 34.3 g/dL (33.0-37.0); Mean Corpuscular Hgb 31.5 pg (27.0-31.0); Mean Corpuscular Volume 91.7 fL (80.0-94.0); Mean Platelet Volume 9.3 fL (7.4-10.4); Nucleated Red Blood Cells % 0 % (-); Platelet Count 216 10^3/uL (130-400); Red Blood Cell Count 3.37 10^6/uL (4.70-6.10); Red Cell Dist. Width 13.1 % (11.5-14.5); White Blood Cell Count 6.1 10^3/uL (4.8-10.8)
[2023-09-09 07:47] LABS: Troponin I < 0.012 ng/ml
[2023-09-09 07:52] LABS: Blood Urea Nitrogen 12 mg/dl (9-20); Calcium 9.3 mg/dl (8.4-10.2); Carbon Dioxide 24 mmol/L (22-30); Chloride 107 mmol/L (98-107); Estimated Creatinine Clearance 64 ml/min; Glucose 89 mg/dl (70-99); Potassium 4.5 mmol/L (3.5-5.1); Sodium 139 mmol/L (135-145); eGFR > 60.00
[2023-09-09] MEDS: LEXAPRO 10 MG PO (08:04)
[2023-09-09] MEDS: ASPIR LOW (ENTERIC COATED) 81 MG PO (08:04)
[2023-09-09] MEDS: FLAGYL 500 MG 100 IV (08:04)
[2023-09-09] MEDS: ZYRTEC 10 MG PO (08:04)
[2023-09-09] MEDS: THERAGRAN PO (08:05)
--- NOTE | 2023-09-09 09:01 | W.PN.HOSP.TC ---
Today's Communication/Plan
-
Oral vancomycin.
Assessment / Plan
Assessment / Plan
Physical exam:
General: Well Developed, Well Nourished and No Apparent Distress
HEENT: Normocephalic, Atraumatic and Moist Mucous Membranes
Respiratory: Clear to Auscultation; Negative Wheezes, Rales or Rhonchi
Cardiac: Regular Rhythm and S1/S2, systolic murmur
GI: Soft, Nontender and Nondistended
Musculoskeletal: No Clubbing, No Cyanosis and No Edema
Neuro: Awake, Alert and Oriented
Psych: Calm
A/P:
Recurrent C. difficile colitis:
Patient with 5 episodes of C. difficile and treatment has included multiple courses of antibiotics and vancomycin, Dificid, fecal transplant x 2, and bezlotoxumab in the past.
Started here and on IV Flagyl and oral high doses of vancomycin.
GI on consultation
GI requested ID
ID simplified antibiotics to oral vancomycin 125 mg 4 times daily. Plan to do a course of 10 days tentatively.
Probiotics
Avoid PPI if possible
Discharge planning once cleared by ID
History of ulcerative colitis:
Status post partial colectomy in the past
On mesalamine
GI on board
CAD:
Stable angina
Had repeated chest pain on 09/07-->resolved with nitro and EKG yesterday and 3 sets of troponin normal
Continue anti-ischemic regimen
Valvulopathy including mitral regurgitation/aortic stenosis:
Continue outpatient serial echocardiograms
Hypertension:
Continue home antihypertensives
Hyperlipidemia:
Continue home statins
BPH:
Continue Flomax
Osteoarthritis:
Pain control
PT eval
Depression:
Continue escitalopram
DVT prophylaxis:
SCDs
CODE STATUS:
Full code
Anticipated Discharge: 24 - 48 hours
Subjective/Interval History
-
Date of Service: September 09, 2023
Patient feels better today, still having diarrhea but much less. No nausea or vomiting. No chest pain or shortness of breath today.
Objective Data
-
Labs:
Laboratory Results
09/09/23
07:05
WBC 6.1
Hgb 10.6 L
Hct 30.9 L
Plt Count 216
Sodium 139
Potassium 4.5
Chloride 107
Carbon Dioxide 24
BUN 12
Creatinine 1.0
Glucose 89
Calcium 9.3
Vital Signs:
Vital Signs
Temp Pulse Resp BP Pulse Ox
97.9 F 71 16 120/70 98
09/09/23 07:00 09/09/23 07:00 09/09/23 07:00 09/09/23 07:00 09/09/23 07:00
I&O
09/08/23 09/09/23 09/10/23
06:59 06:59 06:59
Intake Total 1100 / 1100 1080 / 1080
Output Total 40 / 40
Balance 1060 / 1060 1080 / 1080
--- NOTE | 2023-09-09 09:05 | W.PN.GI.CBS2 ---
Addendum entered and electronically signed by Carlin Mary MD 09/09/23 14:27:
I saw and examined the patient.
The TECHNICAL SERVICE ENGINEER or PA's note was reviewed and I agree with the note.
Comment: 78 yo M pmh UC s/p APR/end colostomy on lialda, history of recurrent CDI requiring FMT, bezlo in past here with CDI after antibiotics.
D/w ID - ok with 10 day course of vanco if ongoing symptoms can do taper. No flagyl, probiotics needed.
Diarrhea last pm doing better today.
Stressed to patient should be on vanco prophylactically with antibiotics in future.
Advance diet as below.
If continues to do well plan for dc tmwr. D/w hospitalist pt asking for pills on dc.
Continue mesalamine gets IBD care with Dr. Hubbard.
Original Note:
Today's Communication / Plan
-
pt feeling better last stool 9 PM and improved abdominal pain
CRP 51.3, ESR 32
stool cx pending
full liquid diet, will advance to low residue/low lactose for lunch
await ID consult
cont Vanco 500mg Q6 and Flagyl Q 8h
remain on Senna at HS-- consider holding if diarrhea continues
-Continue mesalamine
-OP follow up with Dr. Hubbard
Assessment / Plan
-
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
hernia, history of C. difficile s/p FMT x 2, CAD, aortic stenosis, asthma, GERD, BPH, gout, hyperlipidemia, recent right ear infection status posttreatment with 'Z-Kevyn' in June who presents to the emergency room with multiple episodes of diarrhea.
Asked to evaluate for C. difficile colitis.
see H+P for detailed history
Impression:
C. difficile colitis
Ulcerative proctosigmoiditis
Plan:
pt feeling better last stool 9 PM and improved abdominal pain
CRP 51.3, ESR 32
stool cx pending
full liquid diet, will advance to low residue/low lactose for lunch
await ID consult
cont Vanco 500mg Q6 and Flagyl Q 8h
remain on Senna at HS-- consider holding if diarrhea continues
-Continue mesalamine
-OP follow up with Dr. Hubbard
Subjective
Subjective
Date of Service: September 09, 2023
Pt feeling better had liquid stool last PM no stools since. On full liquid diet
Objective
Data Reviewed
Laboratory Data:
Laboratory Results
09/09/23 07:05
09/09/23 07:05
Laboratory Results
Total Bilirubin 0.6 mg/dl (0.2-1.3) 09/07/23 10:27
AST 27 U/L (17-59) 09/07/23 10:27
ALT 17 U/L (0-50) 09/07/23 10:27
Alkaline Phosphatase 108 U/L (38-126) 09/07/23 10:27
Lipase 48 U/L (23-300) 09/07/23 10:27
Vital Signs and I&O:
Vital Signs
Temp Pulse Resp BP Pulse Ox
97.9 F 71 16 120/70 98
09/09/23 07:00 09/09/23 07:00 09/09/23 07:00 09/09/23 07:00 09/09/23 07:00
I&O
09/08/23 09/09/23 09/10/23
06:59 06:59 06:59
Intake Total 1100 / 1100 1080 / 1080
Output Total 40 / 40
Balance 1060 / 1060 1080 / 1080
Physical Exam
Physical Exam
HEENT: Anicteric and Moist mucous membranes
Cardiology: Normal Sinus Rhythm
Pulmonary: Clear
GI: Soft, Non Distended and Non Tender
Extremities: No Edema
Neuro: Non Focal
--- NOTE | 2023-09-09 09:53 | CM ---
Chart reviewed and patient to return to home when stable.
Plan; Home with spouse when stable.
--- NOTE | 2023-09-09 12:46 | CON.ID ---
Consultation
-
Date/Time Consultation Requested: 09/08/23 15:59
Date/Time Consultation Performed: 09/09/23 12:46
Requesting Provider: FAVIO Honeycutt
Performing Provider: Dr ramirez
Reason for Consultation: C diff - recurrent
Chief Complaint / Past History
Chief Complaint
abdominal pain
History of Present Illness
Mr Jackson is a 78 year old male with history of UC s/p abdominoperineal resection and end colostomy now on mesalamine, previous C difficile s/p FMT x2, bezlotoxumab, who presented here for abdominal pain, loose stool for 3-4 days. No fevers, +
sweats, poor appetite and secretory diarrhea. Of note with recent right ear infection treated with Zpac in June - 2 months ago, no oral vancomycin at that time. His baseline bowel movement is no bowel movement or up to 3 solid BMs. Then about
3-4 days ago he developed constipation followed by abdominal cramping, then watery BMs - required multiple ostomy changes per day. Noted a foul smell. He was started on oral vancomycin and metronidazole. He does recall previous fidaxomicin
course. Last episode of C diff was > 6 months ago. Denies: fevers, chills, nausea, vomiting, melena, hematochezia.
Since arrival here he has been afebrile, BP stable, wbc initially 10 now .1, hgb 10.6, plt 216, L shift was noted on arrival and resolved today, cr 1.3 now 1.0, crp 51, ct a/p: colitis of the transverse/descending colon and cecitis with adjacent
inflammation of the appendix. 09/06 C diff toxin/ag positive; currently on oral vancomycin 500 mg PO QID and metronidazole 500 mg IV TID. Stool remains liquid. He is now on full liquid diet.
Past History
Additional Past Medical History:
CAD,
essential HTN,
Valvular disease
Ulcerative colitis
Bowel resection
Orthopedic surgery
Ulcerative rectosigmoiditis with rectal bleeding
Mitral regurgitation and aortic stenosis
Elevated prostate specific antigen
Degenerative lumbar spinal stenosis
Chronic left lumbar radiculopathy
C. difficile colitis
GOUT
hyperlipedimia
Additional Past Surgical History:
robotic abdominoperineal resection and end colostomy in May 2020
Allergy History:
chlorhexidine Allergy (Verified 09/07/23 09:52)
Rash
clopidogrel [From Plavix] Allergy (Verified 09/07/23 09:52)
Itching
nabumetone Allergy (Verified 09/07/23 09:52)
Hives
naproxen Allergy (Verified 09/07/23 09:52)
stay awasy from due ulcertive colitis
NSAIDS (Non-Steroidal Anti-Inflamma Allergy (Verified 09/07/23 09:52)
'stays away from these due to ulcerative colitis'
povidone-iodine [From Betadine] Allergy (Verified 09/07/23 09:52)
Rash
Medications Reviewed: Yes
Social History
Tobacco: Non-Smoker
Alcohol: Occasional
Drug: None
Family History
Family History: Not Pertinent
Review of Systems
Review of Systems
General: Chills; Negative Fever
All systems: All other systems were reviewed and were negative
Vital Signs
Temp Pulse Resp BP Pulse Ox
97.9 F 71 16 120/70 98
09/09/23 07:00 09/09/23 07:00 09/09/23 07:00 09/09/23 07:00 09/09/23 08:00
Physical Exam
Physical Exam
Constitutional: No Acute Distress
Cardiovascular: Regular Rate and S1/S2; Negative Murmur or Rub
Pulmonary: Clear and Symmetric; Negative Wheezes, Rales or Rhonchi
Gastrointestinal: Soft, Non Tender, Non Distended and Normal Bowel Sounds
Skin: Warm and Dry; Negative Rash or Jaundice
Lines: Other (ostomy - clean, no diarrhea thus far today)
Lab / Diagnostic Study Results
09/09/23 07:05
09/09/23 07:05
Abs Immat Gran (auto) 0.0 10^3/uL (0-0.05) 09/09/23 07:05
Absolute Neuts (auto) 3.4 10^3/uL (1.4-6.5) 09/09/23 07:05
Absolute Lymphs (auto) 1.7 10^3/uL (1.2-3.4) 09/09/23 07:05
Absolute Monos (auto) 0.6 10^3/uL (0.1-0.6) 09/09/23 07:05
Absolute Basos (auto) 0.0 10^3/uL (0-0.2) 09/09/23 07:05
Immature Gran % 0.3 % (0-0.5) 09/09/23 07:05
Neutrophils % 55.9 % (42.2-75.2) 09/09/23 07:05
Lymphocytes % 28.1 % (20.5-51.1) 09/09/23 07:05
Monocytes % 10.6 % (1.7-9.3) H 09/09/23 07:05
Eosinophils % 4.6 % (0-6) 09/09/23 07:05
Basophils % 0.5 % (0-2) 09/09/23 07:05
ESR 32 mm/hour (0-20) H 09/07/23 10:27
C-Reactive Protein 51.30 mg/L (0.0-10.00) H 09/07/23 10:27
Microbiology Results
Micro:
09/07/23 14:36 Salmonella/Shigella Culture - Final
Feces/Stool No Salmonella, Shigella, Aeromonas or Plesiomonas species
isolated.
Campylobacter Culture - Final
No Campylobacter species isolated.
Shiga Toxin Test - Final
No E. coli Shiga Toxin 1 or 2 detected.
09/07/23 14:36 C. difficile GDH Antigen & Toxins - Final
Feces/Stool Toxigenic C.difficile Positive
Assessment / Plan
Recurrent C difficile - Currently Mild
UC s/p partial colectomy with end ostomy on mesalamine
- continue to follow ostomy output and clinically - improved without any BMS thus far today
- continue probiotics
- would continue to avoid PPI
- diet per GI
- note history of fecal transplant x2 and previous bezlotoxumab
- dose adjusted oral vanc to 125 mg PO QID x 10 days, stop metronidazole. Its been more than 6 months since his last episode of C diff. Encouraged him to call either Dr Hubbard or myself if relapse of symptoms after treatment. While I am happy to
see him, he is well known to Dr Hubbard.
- agree with oral vanc ppx along with antibiotics in the future
- stable for dc from ID perspective.
[2023-09-09 15:20] VITALS: BP 116/64
--- NOTE | 2023-09-09 16:44 | PTCARENOTE ---
Pt advanced to low residue diet - tolerating well. Ostomy output improving - still loose but not watery like before. Has had no complaints today.
[2023-09-09] MEDS: ASACOL, DELZICOL DR 2400 MG PO (17:11)
[2023-09-09] MEDS: FIRVANQ 125 MG PO ×2 (17:11→23:28)
[2023-09-09] MEDS: ZYLOPRIM 200 MG PO (17:12)
[2023-09-09] MEDS: NORVASC 2.5 MG PO (17:12)
[2023-09-09] MEDS: FLOMAX 0.400000000000000022 MG PO (17:12)
[2023-09-09] MEDS: OSCAL CAL 500 1000 MG PO (17:12)
[2023-09-09] MEDS: VESICARE 5 MG PO (17:12)
[2023-09-09] MEDS: VISBIOME 1 CAP PO (17:12)
[2023-09-09] MEDS: LIPITOR 80 MG PO (21:40)
[2023-09-09 23:13] VITALS: BP 125/66
--- NOTE | 2023-09-10 04:15 | DOWNTIME ---
There was a [employer] Client Certified Scrum Master Downtime on 09/10/2023 from 0100 to 09/10/2023 at 0337. Downtime documentation of patient's care, including medication administrations, has been reconciled in the electronic record per guidelines. Refer to the
patient's paper chart under the miscellaneous tab to see printed paper medication records and downtime forms.
[2023-09-10] MEDS: FIRVANQ 125 MG PO ×2 (05:52→12:29)
[2023-09-10 07:22] LABS: Hematocrit 32.3 % (39.0-52.0); Hemoglobin 11.4 g/dL (13.0-18.0); Mean Corp Hgb Conc. 35.3 g/dL (33.0-37.0); Mean Corpuscular Hgb 31.1 pg (27.0-31.0); Mean Corpuscular Volume 88.3 fL (80.0-94.0); Mean Platelet Volume 9.2 fL (7.4-10.4); Platelet Count 261 10^3/uL (130-400); Red Blood Cell Count 3.66 10^6/uL (4.70-6.10); White Blood Cell Count 6.7 10^3/uL (4.8-10.8)
[2023-09-10 07:58] LABS: Blood Urea Nitrogen 14 mg/dl (9-20); Calcium 9.3 mg/dl (8.4-10.2); Carbon Dioxide 27 mmol/L (22-30); Chloride 105 mmol/L (98-107); Estimated Creatinine Clearance 58 ml/min; Glucose 90 mg/dl (70-99); Potassium 4.4 mmol/L (3.5-5.1); Sodium 141 mmol/L (135-145); eGFR > 60.00
[2023-09-10 08:07] VITALS: BP 122/67
[2023-09-10] MEDS: THERAGRAN 1 TABLET PO (08:39)
[2023-09-10] MEDS: ASPIR LOW (ENTERIC COATED) 81 MG PO (08:39)
[2023-09-10] MEDS: LEXAPRO 10 MG PO (08:39)
--- NOTE | 2023-09-10 08:39 | W.PN.HOSP.TC ---
Today's Communication/Plan
-
Discharge planning today.
Assessment / Plan
Assessment / Plan
Physical exam:
General: Well Developed, Well Nourished and No Apparent Distress
HEENT: Normocephalic, Atraumatic and Moist Mucous Membranes
Respiratory: Clear to Auscultation; Negative Wheezes, Rales or Rhonchi
Cardiac: Regular Rhythm and S1/S2, systolic murmur
GI: Soft, Nontender and Nondistended
Musculoskeletal: No Clubbing, No Cyanosis and No Edema
Neuro: Awake, Alert and Oriented
Psych: Calm
A/P:
Recurrent C. difficile colitis:
Patient with 5 episodes of C. difficile and treatment has included multiple courses of antibiotics and vancomycin, Dificid, fecal transplant x 2, and bezlotoxumab in the past.
Started here and on IV Flagyl and oral high doses of vancomycin.
GI on consultation
GI requested ID
ID simplified antibiotics to oral vancomycin 125 mg 4 times daily. Plan to do a course of 10 days tentatively.
Probiotics
Avoid PPI if possible
Discharge planning once cleared by ID
History of ulcerative colitis:
Status post partial colectomy in the past
On mesalamine
GI on board
CAD:
Stable angina
Had repeated chest pain on 09/07-->resolved with nitro and EKG yesterday and 3 sets of troponin normal
Continue anti-ischemic regimen
Valvulopathy including mitral regurgitation/aortic stenosis:
Continue outpatient serial echocardiograms
Hypertension:
Continue home antihypertensives
Hyperlipidemia:
Continue home statins
BPH:
Continue Flomax
Osteoarthritis:
Pain control
PT eval
Depression:
Continue escitalopram
DVT prophylaxis:
SCDs
CODE STATUS:
Full code
Anticipated Discharge: Today
Subjective/Interval History
-
Date of Service: September 10, 2023
Patient feels better, no diarrhea today.
Objective Data
-
Labs:
Laboratory Results
09/10/23
06:51
WBC 6.7
Hgb 11.4 L
Hct 32.3 L
Plt Count 261 D
Sodium 141
Potassium 4.4
Chloride 105
Carbon Dioxide 27
BUN 14
Creatinine 1.1
Glucose 90
Calcium 9.3
Vital Signs:
Vital Signs
Temp Pulse Resp BP Pulse Ox
98.9 F 76 16 122/67 100
09/10/23 08:07 09/10/23 08:07 09/10/23 08:07 09/10/23 08:07 09/10/23 08:07
I&O
09/09/23 09/10/23 09/11/23
06:59 06:59 06:59
Intake Total 1080 / 1080
Balance 1080 / 1080
[2023-09-10] MEDS: ZYRTEC 10 MG PO (08:40)
--- NOTE | 2023-09-10 09:43 | W.PN.GI.CBS2 ---
Addendum entered and electronically signed by Carlin Mary MD 09/10/23 11:41:
I saw and examined the patient.
The SLAB LIFTING ENGINEER or PA's note was reviewed and I agree with the note.
Comment: 78 yo M pmh UC here with CDI after antibiotics.
Improved on vancomycin. 10 day course per ID.
OK for DC from GI POV.
Will sign off.
Original Note:
Today's Communication / Plan
-
continued improvement
low residue diet
stable from GI for discharge
appreciate ID input
discussed trip plan with heat forecasted for this weekend and recent infection best to stay home if able
CRP 51.3, ESR 32
stool cx pending
continue probiotics
would continue to avoid PPI
oral vanc to 125 mg PO QID x 10 days, metronidazole stopped
reviewed again to call Dr. Hubbard or Dr. Alfaro if need for any antibiotics or recurrent diarrhea symptoms
-Continue mesalamine
Pt scheduled 12/02 at [address] Hubbard
Assessment / Plan
-
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
hernia, history of C. difficile s/p FMT x 2, CAD, aortic stenosis, asthma, GERD, BPH, gout, hyperlipidemia, recent right ear infection status posttreatment with 'Z-Kevyn' in June who presents to the emergency room with multiple episodes of diarrhea.
Asked to evaluate for C. difficile colitis.
see H+P for detailed history
Impression:
C. difficile colitis
Ulcerative proctosigmoiditis
Plan:
continued improvement
low residue diet
stable from GI for discharge
appreciate ID input
discussed trip plan with heat forecasted for this weekend and recent infection best to stay home if able
CRP 51.3, ESR 32
stool cx pending
continue probiotics
would continue to avoid PPI
oral vanc to 125 mg PO QID x 10 days, metronidazole stopped
reviewed again to call Dr. Hubbard or Dr. Alfaro if need for any antibiotics or recurrent diarrhea symptoms
-Continue mesalamine
Pt scheduled 12/[address] at [address] Hubbard
Subjective
Subjective
Date of Service: September 10, 2023
09/08 stool in ostomy, on low residue/low lactose diet feeling better
Objective
Data Reviewed
Laboratory Data:
Laboratory Results
09/10/23 06:51
09/10/23 06:51
Laboratory Results
Total Bilirubin 0.6 mg/dl (0.2-1.3) 09/07/23 10:27
AST 27 U/L (17-59) 09/07/23 10:27
ALT 17 U/L (0-50) 09/07/23 10:27
Alkaline Phosphatase 108 U/L (38-126) 09/07/23 10:27
Lipase 48 U/L (23-300) 09/07/23 10:27
Vital Signs and I&O:
Vital Signs
Temp Pulse Resp BP Pulse Ox
98.9 F 76 16 122/67 100
09/10/23 08:07 09/10/23 08:07 09/10/23 08:07 09/10/23 08:07 09/10/23 08:07
I&O
09/09/23 09/10/23 09/11/23
06:59 06:59 06:59
Intake Total 1080 / 1080
Balance 1080 / 1080
Physical Exam
Physical Exam
HEENT: Anicteric and Moist mucous membranes
Cardiology: Normal Sinus Rhythm
Pulmonary: Clear
GI: Soft, Non Distended, Non Tender and Other (improved ostomy output )
Extremities: No Edema
Neuro: Non Focal
--- NOTE | 2023-09-10 11:37 | W.DCSUMMARY ---
Discharge Summary
Discharge Data
Date of Admission: 09/07/23
Date of Discharge: 09/10/23
-
Pending Results: No
Hospital Course
Patient 78 years old male with history of CAD, hypertension, ulcerative colitis status post abdominal perineal resection and end colostomy on mesalamine, history of C. difficile multiple times on multiple antibiotics and fecal transplant in the past
as well as monoclonal antibody, presented to the hospital recurrent diarrhea and found to have C. difficile again. Patient was initially started on IV Flagyl and high doses of oral vancomycin. GI consulted. Subsequently ID consulted as well. ID
discontinue Flagyl and decreased doses of vancomycin. Patient did well clinically. ID recommended a 10 days course of vancomycin. GI also cleared him for discharge. He will be discharged in stable condition today.
Discharge duration: 35 minutes
Discharge Plan
-
Patient Disposition: Home (Routine Discharge)
Discharge Diagnosis/Procedures: Clostridium difficile colitis, recurrent. History of coronary artery disease.
Diet: Low Residue
Activity: As tolerated
Driving Restrictions: As prior to admission
Blood Work: Please PCP to order CBC, BMP within 1 week
Referrals:
Shane Gusman MD [Family Provider] -
Kalee Hubbard DO [Active] - 12/03/23 11:00 am
(call office with any recurrent issues with diarrhea or need for any recurrent need for antibiotic to add Vanco with use.
Please call to reschedule if you can not keep this appointment. If your insurance requires a referral please contact your primary care physician prior to your appointment. )
Kimberley Alfaro MD [Active] - in two to four weeks
Prescriptions:
New
vancomycin [Vancocin] 125 mg capsule
125 mg PO QID 10 Days Qty: 40 0RF
Continued
atorvastatin 80 MG tablet
80 mg PO HS
tamsulosin 0.4 MG capsule
0.4 mg PO QPM
escitalopram oxalate 10 MG tablet
10 mg PO DAILY
allopurinol 100 MG tablet
200 mg PO QPM
solifenacin 5 MG tablet
5 mg PO QPM
cetirizine [Aller-Sulema] 10 mg Tablet
10 mg PO DAILY
lzwfqokqboxk-znbqmtqd-ifqihl Tablet
1 tab PO DAILY
mesalamine 1.2 gram Tablet,Delayed Release (Dr/Ec)
2.4 g PO QPM
sennosides [senna] 8.6 mg Tablet
17.2 mg PO QPM
aspirin 81 mg Tablet,Delayed Release (Dr/Ec)
81 mg PO DAILY
calcium carbonate 500 mg calcium (1,250 mg) Tablet
1,000 mg PO QPM
Visbiome 112.5 billion cell Capsule
1 cap PO QPM
Tyrvaya 0.03 mg/spray [place], Metered, Non-Aerosol
1 spray INTRANASAL BID
Metamucil capsule
2 cap PO TID
amlodipine 2.5 MG tablet
2.5 mg PO QPM
Discharge Orders:
Discharge Patient (As Directed); Ordered 09/10/23
Ordered By: Jose Lazo
Discharge Date and Time
Discharge Date/Time: 09/10/23 14:08
Print Language: [email or web address]
--- NOTE | 2023-09-10 12:12 | CM ---
Patient to return to home with spouse no needs.
Plan; Home with spouse.
== END 2023-09-10 14:08 | disposition home or self-care (01) | DRG 372 ==
LOC: 4 WEST ACU 15:38
PROVIDERS: ADMITTING PHYSICIAN Internal Medicine; ATTENDING PHYSICIAN Hospitalist; CONSULT PHYSICIAN Internal Medicine Gastroenterology; CONSULT PHYSICIAN Student in an Organized Health Care Education/Training Program; EMERGENCY PHYSICIAN Emergency Medicine; FAMILY PHYSICIAN Internal Medicine
DX: A04.72 Enterocolitis due to Clostridium difficile, not specified as recurrent (principal); K51.30 Ulcerative (chronic) rectosigmoiditis without complications; I10 Essential (primary) hypertension; I25.10 Atherosclerotic heart disease of native coronary artery without angina pectoris; K42.9 Umbilical hernia without obstruction or gangrene; I20.89 Other forms of angina pectoris
CPT/HCPCS: 74177; 80048; 80053; 83690; 84484; 85025; 85027; 85652; 86140; 87045; 87046; 87324; 87427; 87449; 93005; 96360; 96361; 99285; Q9967

== ENCOUNTER 2023-10-06 16:39 | Emergency (ER) | payer MEDICARE, SELFPAY ==
[2023-10-06 16:42] VITALS: BP 110/67
[2023-10-06] MEDS: NSS 1000 IV (18:55)
[2023-10-06 18:57] VITALS: BMI 28.4
[2023-10-06 19:06] LABS: % Basophils 0.9 % (0-2); % Eosinophils 3.9 % (0-6); % Immature Granulocytes 0.2 % (0-0.5); % Lymphocytes 31.8 % (20.5-51.1); % Monocytes 8.1 % (1.7-9.3); % Neutrophils 55.1 % (42.2-75.2); Absolute Basophils 0.1 10^3/uL (0-0.2); Absolute Eosinophils 0.3 10^3/uL (0-0.7); Absolute Monocytes 0.5 10^3/uL (0.1-0.6); Absolute Neutrophils 3.5 10^3/uL (1.4-6.5); Hematocrit 30.3 % (39.0-52.0); Hemoglobin 10.7 g/dL (13.0-18.0); Mean Corp Hgb Conc. 35.3 g/dL (33.0-37.0); Mean Corpuscular Hgb 31.5 pg (27.0-31.0); Mean Corpuscular Volume 89.1 fL (80.0-94.0); Mean Platelet Volume 9.4 fL (7.4-10.4); Nucleated Red Blood Cells % 0 % (-); Platelet Count 242 10^3/uL (130-400); Red Cell Dist. Width 13.8 % (11.5-14.5); White Blood Cell Count 6.4 10^3/uL (4.8-10.8)
--- NOTE | 2023-10-06 19:10 | ED.GENMED ---
History of Present Illness
General
Chief Complaint: Abdominal Symptoms
Time Seen by Provider: 10/06/23 18:12
History of Present Illness
History of Present Illness:
78-year-old male with history of ulcerative colitis status post colectomy and recurrent C. difficile presents to the emergency department for evaluation of abdominal discomfort and worsening diarrhea. He is on his second 10-day course of oral
vancomycin in the past month for C. difficile colitis, was admitted here for this recently as well. [place] as though he was improving initially but the symptoms continue to worsen. Denies any bloody output into the bag. Reports mild fatigue and
lightheadedness. No fevers or chills
Past History
Past History
ED Past Medical History: CAD, HTN, Valvular disease and Other (Ulcerative colitis)
ED Past Surgical History: Bowel resection and Orthopedic
Social History
Tobacco: Former smoker
Alcohol: Occasional
Drug: None
Personal:
Living: with family
Employment: Retired
Family History
Family History: Other (Noncontributory)
Review of Systems
Review of Systems
Allergies reviewed?: Yes
All Other Systems: ROS reviewed and negative except as documented in HPI and ROS
Phy Exam
Physical Exam
Physical Exam:
GEN: Well appearing, NAD, WDWN
Eyes: PERRLA, EOMs intact, no scleral icterus
HENT: NCAT, oral mucosa moist
Lungs: CTAB, no wheezes, rales, rhonchi, normal chest wall excursion
Cardiac: RRR, no M/R/G, no peripheral edema. Radial pulses 2+ bilat
Abdomen: Soft, nondistended, grossly nontender, ostomy present with copious green-yellow stool in the bag
Neuro: AO x 3
MSK: No gross deformity or ecchymosis. No edema. No digital clubbing
Skin: No rashes, petechiae. Normal color, no pallor or jaundice.
Psych: Calm, cooperative, proper hygiene
Course
Orders/Labs/Results
Orders:
Orders
10/06/23 18:41
0.9% Sodium Chloride 1000 ml [Nss] 1,000 ml IV BOLUS
10/06/23 18:52
Complete Blood Count/With Diff Urgent
Comprehensive Metabolic Panel Urgent
Abnormal Lab Results
10/06/23
18:52
RBC 3.40 L 10^6/uL
(4.70-6.10)
Hgb 10.7 L g/dL
(13.0-18.0)
Hct 30.3 L %
(39.0-52.0)
MCH 31.5 H pg
(27.0-31.0)
Sodium 134 L mmol/L
(135-145)
10/06/23 18:52
10/06/23 18:52
Vital Signs
Initial and Last Documented VS:
Initial Vital Signs
Temp Pulse Resp BP Pulse Ox
98.1 F 78 20 110/67 97
10/06/23 16:42 10/06/23 16:42 10/06/23 16:42 10/06/23 16:42 10/06/23 16:42
Last Documented Vital Signs
Temp Pulse Resp BP Pulse Ox
98.0 F 68 18 112/68 98
10/06/23 20:14 10/06/23 20:14 10/06/23 20:14 10/06/23 20:14 10/06/23 20:14
MDM/Problems Addressed
MDM/Problems Addressed:
Patient with recurrent symptoms of C. difficile. Unlikely that stool testing will be of benefit given he is on antibiotics actively. His labs are reassuring and he was given IV fluids with improvement in lightheadedness. I discussed the case with
GI who recommend we start the patient on fidaxomicin, he is encouraged to call the office tomorrow if he has any difficulties in filling this prescription
*Critical Care Note
Total Time (30-74mins, 75-104mins- exclusive of procedures): Not Applicable
ED Attending Note
-
Portions of this chart may have been created with voice recognition software.� Occasional wrong word or��sound alike� substitutions may have occurred due to the inherent limitations of voice recognition software.
Discharge Plan
Departure
Patient Disposition: Home (Routine Discharge)
Date of Disposition: 10/06/23
Time of Disposition: 20:08
Patient with high blood pressure during this ER visit?: No
Discharge Problem:
C. difficile colitis
Instructions: C. difficile infection
Prescriptions:
New
Dificid 200 mg tablet
200 mg PO Q12H 14 Days Qty: 28 0RF
No Action
atorvastatin 80 MG tablet
80 mg PO HS
tamsulosin 0.4 MG capsule
0.4 mg PO QPM
escitalopram oxalate 10 MG tablet
10 mg PO DAILY
allopurinol 100 MG tablet
200 mg PO QPM
solifenacin 5 MG tablet
5 mg PO QPM
cetirizine [Aller-Sulema] 10 mg Tablet
10 mg PO DAILY
btewzjwegphg-cdenimze-jlheat Tablet
1 tab PO DAILY
mesalamine 1.2 gram Tablet,Delayed Release (Dr/Ec)
2.4 g PO QPM
sennosides [senna] 8.6 mg Tablet
17.2 mg PO QPM
aspirin 81 mg Tablet,Delayed Release (Dr/Ec)
81 mg PO DAILY
calcium carbonate 500 mg calcium (1,250 mg) Tablet
1,000 mg PO QPM
Visbiome 112.5 billion cell Capsule
1 cap PO QPM
Tyrvaya 0.03 mg/spray [place], Metered, Non-Aerosol
1 spray INTRANASAL BID
Metamucil capsule
2 cap PO TID
amlodipine 2.5 MG tablet
2.5 mg PO QPM
vancomycin [Vancocin] 125 mg capsule
125 mg PO QID 10 Days Qty: 40 0RF
Referrals:
Shane Gusman MD [Family Provider] -
Activity Restrictions/Additional Instructions:
Continue the oral vancomycin until you have been able to fill the fidaxomicin
Call your GI doctors office tomorrow if you have difficulty at a retail pharmacy filling the medication
Interventions
Interventions:
*Risk Screen - Suicide Last Done: 10/06/23 16:42
*General Assessment Last Done: 10/06/23 16:42
*Neglect/Abuse Screening Last Done: 10/06/23 16:42
ED- Fall Risk Assessment Last Done: 10/06/23 18:59
*Nursing Disposition Last Done: 10/06/23 20:15
NU-Xhwdie-Hovttdkeqy Assessment Last Done: 10/06/23 18:59
Discharge Date and Time
Discharge Date/Time: 10/06/23 20:20
Print Language: KHMER
[2023-10-06 19:24] LABS: ALT (SGPT) 19 U/L (0-50); AST (SGOT) 25 U/L (17-59); Alkaline Phosphatase 91 U/L (38-126); Blood Urea Nitrogen 16 mg/dl (9-20); Calcium 9.6 mg/dl (8.4-10.2); Carbon Dioxide 27 mmol/L (22-30); Chloride 100 mmol/L (98-107); Estimated Creatinine Clearance 53 ml/min; Glucose 93 mg/dl (70-99); Potassium 4.3 mmol/L (3.5-5.1); Sodium 134 mmol/L (135-145); Total Bilirubin 0.5 mg/dl (0.2-1.3); Total Protein 6.3 g/dl (6.3-8.2); eGFR > 60.00
[2023-10-06 20:14] VITALS: BP 112/68
== END 2023-10-06 20:20 | disposition home or self-care (01) ==
LOC: EMR 16:39
PROVIDERS: Physician Assistant; EMERGENCY PHYSICIAN Emergency Medicine; FAMILY PHYSICIAN Internal Medicine
DX: A04.72 Enterocolitis due to Clostridium difficile, not specified as recurrent (principal); Z87.891 Personal history of nicotine dependence
CPT/HCPCS: 99283; 80053; 85025

== ENCOUNTER 2023-10-29 10:55 | Emergency (ER) | payer MEDICARE, SELFPAY ==
[2023-10-29 11:13] VITALS: BP 143/72
[2023-10-29 12:56] LABS: Urine Albumin Negative (Neg - Trace); Urine Bilirubin Negative (Negative); Urine Character Clear (Clear); Urine Color Yellow; Urine Glucose Negative (Negative); Urine Ketone Negative (Negative); Urine Leukocyte Negative (Negative); Urine Nitrite Negative (Negative); Urine Occult Blood Negative (Negative); Urine Urobilinogen Negative (Neg - 1+)
[2023-10-29 12:57] LABS: % Basophils 0.4 % (0-2); % Immature Granulocytes 0.2 % (0-0.5); % Lymphocytes 9.6 % (20.5-51.1); % Monocytes 3.8 % (1.7-9.3); Absolute Basophils 0.1 10^3/uL (0-0.2); Absolute Lymphocytes 1.1 10^3/uL (1.2-3.4); Absolute Monocytes 0.5 10^3/uL (0.1-0.6); Absolute Neutrophils 10.2 10^3/uL (1.4-6.5); Hematocrit 33.2 % (39.0-52.0); Hemoglobin 11.3 g/dL (13.0-18.0); Mean Corpuscular Hgb 31.9 pg (27.0-31.0); Mean Corpuscular Volume 93.8 fL (80.0-94.0); Mean Platelet Volume 9.2 fL (7.4-10.4); Nucleated Red Blood Cells % 0 % (-); Platelet Count 274 10^3/uL (130-400); Red Blood Cell Count 3.54 10^6/uL (4.70-6.10); Red Cell Dist. Width 13.4 % (11.5-14.5); White Blood Cell Count 11.9 10^3/uL (4.8-10.8)
[2023-10-29 13:09] LABS: ALT (SGPT) 30 U/L (0-50); AST (SGOT) 34 U/L (17-59); Albumin 4.3 g/dl (3.5-5.0); Alkaline Phosphatase 99 U/L (38-126); Blood Urea Nitrogen 22 mg/dl (9-20); Calcium 9.6 mg/dl (8.4-10.2); Carbon Dioxide 24 mmol/L (22-30); Chloride 103 mmol/L (98-107); Glucose 106 mg/dl (70-99); Potassium 4.5 mmol/L (3.5-5.1); Sodium 135 mmol/L (135-145); Total Bilirubin 0.8 mg/dl (0.2-1.3); Total Protein 6.8 g/dl (6.3-8.2); eGFR > 60.00
[2023-10-29 13:23] LABS: Lipase 90 U/L (23-300)
[2023-10-29] MEDS: OMNIPAQUE 50 ML PO (13:23)
--- NOTE | 2023-10-29 14:01 | ED.GENMED ---
History of Present Illness
General
Chief Complaint: Abdominal Pain
Source: patient
Exam Limitations: none
Time Seen by Provider: 10/29/23 11:44
Nursing documentation reviewed up to this point in time: agreed with
History of Present Illness
History of Present Illness:
pt is a 78 y/o M with h/o very resistant C diff, s/p multiple fecal transplants and s/p partial colectomy from severe colitis 3 years ago ([facility])
CAD, heart murmur, ht, hld, bph
here with pain in his rectum/lower abdomen in waves comin and going spontaneously
was onset in the night 2 nights ago and was intense for 2 hours but then resolved; he had normal day yesterday, ate and drank normally
no change to ostomy output
an dthen today around 2 am got woken up by the same pain except this time it lasted much longer
until just before he got here
it was strong and wave like, starting in rectum and movin gup into lower abd and into mid lower back region
he has never had pain like this before
nausea but no vomiting, no fever, no urinary problems
has never had kidney stone
feels better now
Past History
Past History
ED Past Medical History: CAD, HTN, Valvular disease and Other (Ulcerative colitis)
ED Past Surgical History: Bowel resection and Orthopedic
Social History
Tobacco: Former smoker
Alcohol: Occasional
Drug: None
Personal:
Living: with family
Employment: Retired
Family History
Family History: Other (Noncontributory)
Review of Systems
Review of Systems
Allergies reviewed?: Yes
All Other Systems: Not applicable
Phy Exam
Physical Exam
Physical Exam:
GENERAL: Alert , in no apparent distress
EYE: pupils equal and reactive
NECK: Supple
ENT: o/p clr, mmm.
CARDIAC: Regular rate and rhythm .
LUNGS: Clear breath sounds bilaterally, no acute respiratory distress, no wheezes/rales/rhonchi
ABDOMEN: Soft, nontender, stoma pink, normal light brown stool, not watery, no r/g, no cvat, normal bowel sounds
NEUROLOGICAL: Alert and oriented, no focal neuro deficits
SKIN: Warm and dry, skin intact.
MUSCULOSKELETAL: No edema, well perfused.
PSYCH: Normal and appropriate interaction.
Course
Orders/Labs/Results
Orders:
Orders
10/29/23 11:15
Electrocardiogram (*1) Urgent
Reason for Study: Abdominal Pain
EKG- Treatment ONCE
10/29/23 12:37
Complete Blood Count/With Diff Urgent
Comprehensive Metabolic Panel Urgent
Lipase Urgent
Urinalysis Reflex To Culture Urgent
Date Specimen was Collected: 10/29/23
Time Specimen was Collected: 11:15
10/29/23 12:48
CT Abd/pel W Iv And Oral Contr Urgent
Comment:
Reason For Exam: lower abd pain/rectal pain since yes; h/o colectom
Iohexol [Omnipaque] See Protocol PO NOW STA
Abnormal Lab Results
10/29/23
12:37
WBC 11.9 H 10^3/uL
(4.8-10.8)
RBC 3.54 L 10^6/uL
(4.70-6.10)
Hgb 11.3 L g/dL
(13.0-18.0)
Hct 33.2 L %
(39.0-52.0)
MCH 31.9 H pg
(27.0-31.0)
Absolute Neuts (auto) 10.2 H 10^3/uL
(1.4-6.5)
Absolute Lymphs (auto) 1.1 L 10^3/uL
(1.2-3.4)
Neutrophils % 86.0 H %
(42.2-75.2)
Lymphocytes % 9.6 L %
(20.5-51.1)
BUN 22 H mg/dl
(9-20)
Glucose 106 H mg/dl
(70-99)
10/29/23 12:37
10/29/23 12:37
Vital Signs
Initial and Last Documented VS:
Initial Vital Signs
Temp Pulse Resp BP Pulse Ox
98.7 F 63 18 143/72 100
10/29/23 11:13 10/29/23 11:13 10/29/23 11:13 10/29/23 11:13 10/29/23 11:13
Last Documented Vital Signs
Temp Pulse Resp BP Pulse Ox
98.7 F 55 16 136/80 99
10/29/23 11:13 10/29/23 16:30 10/29/23 14:12 10/29/23 16:30 10/29/23 16:30
MDM/Problems Addressed
Differential Diagnosis Includes:
colitis, bowel obstruction, gas pain, nerve pain, cramps
MDM/Problems Addressed:
78 y/o M with h/o recurrent c diff, ulcerative colitis, s/p partial colectomy in the past and fecal transplant for recurrent c diff, on chronic vancomycin, weaning down
followed by Gi dr hubbard
here with some pain that started 2 nights ago in the night from rectum into lower abdomen and back
it stayed in the lower region and was waxing and waning intiially but only 2 hours and then he felt well all day yesterday, no stool changes
then again this morning overnight had more pain but tthis lasted longer, which prompted er visit
however when he got here, he felt better, no pain
wella pearing, nontender abdomen, stoma pink, normal looking stool
given his history, idfficult not to image -
ct po prep scan shows no findings that are concerning, modreate stool burden, no obvious colitis, no bowel obstruction
this pain is likely related to stool/constipation desptiei that he is emptying his ostomy
i spke with his GI dr. hubbard who knows him well
try laxative tonight
only bentyl if needed as rescue drug if pain returns
continue vanc
return precautions.
*Critical Care Note
Total Time (30-74mins, 75-104mins- exclusive of procedures): Not Applicable
ED Attending Note
-
Portions of this chart may have been created with voice recognition software.� Occasional wrong word or��sound alike� substitutions may have occurred due to the inherent limitations of voice recognition software.
Discharge Plan
Departure
Patient Disposition: Home (Routine Discharge)
Date of Disposition: 10/29/23
Time of Disposition: 16:38
Patient with high blood pressure during this ER visit?: No
Condition: Fair
Covid-19: Not Applicable
Discharge Problem:
Constipation
Instructions: Constipation, Adult (DC)
Prescriptions:
New
dicyclomine 20 mg tablet
20 mg PO QID PRN (Reason: ABDOMINAL PAIN) Qty: 7 0RF
No Action
atorvastatin 80 MG tablet
80 mg PO HS
tamsulosin 0.4 MG capsule
0.4 mg PO QPM
escitalopram oxalate 10 MG tablet
10 mg PO DAILY
allopurinol 100 MG tablet
200 mg PO QPM
solifenacin 5 MG tablet
5 mg PO QPM
cetirizine [Aller-Sulema] 10 mg Tablet
10 mg PO DAILY
jnlfwnvvekcp-qogcmfxu-xadnkp Tablet
1 tab PO DAILY
mesalamine 1.2 gram Tablet,Delayed Release (Dr/Ec)
2.4 g PO QPM
sennosides [senna] 8.6 mg Tablet
17.2 mg PO QPM
aspirin 81 mg Tablet,Delayed Release (Dr/Ec)
81 mg PO DAILY
calcium carbonate 500 mg calcium (1,250 mg) Tablet
1,000 mg PO QPM
Visbiome 112.5 billion cell Capsule
1 cap PO QPM
Tyrvaya 0.03 mg/spray [place], Metered, Non-Aerosol
1 spray INTRANASAL BID
Metamucil capsule
2 cap PO TID
amlodipine 2.5 MG tablet
2.5 mg PO QPM
vancomycin [Vancocin] 125 mg capsule
125 mg PO QID 10 Days Qty: 40 0RF
Dificid 200 mg tablet
200 mg PO Q12H 14 Days Qty: 28 0RF
Referrals:
Shane Gusman MD [Family Provider] - Follow up in 2-3 days
Kalee Hubbard, [Active] - Follow up in 5-7 days
Activity Restrictions/Additional Instructions:
CONTINUE YOUR VANCOMYCIN
TAKE A DOSE OF LAXATIVE WHEN YOU GET HOME
HOPEFULLY THAT HELPS
IF YOUR PAIN RETURNS TRY TYLENOL
IF THAT ODESN'T HELP TAKE A DOSE OF BENTYL 20 MG
DO NOT USE THE BENTYL REGULARLY
RETURN FOR SEVERE PAIN, FEVER, VOMITING, BLOODY STOOL, SEVERE DIARRHEA OR ANY CONCERNS
FOLLOW UP WITH GI NEEDED
Interventions
Interventions:
*Risk Screen - Suicide Last Done: 10/29/23 12:54
*General Assessment Last Done: 10/29/23 12:54
*Neglect/Abuse Screening Last Done: 10/29/23 12:54
ED- Fall Risk Assessment Last Done: 10/29/23 12:54
*ED COVID-19 Vaccine History Last Done: 10/29/23 12:54
*Nursing Disposition Last Done: 10/29/23 16:45
WM-Opiaxb-Xnacswpiqt Assessment Last Done: 10/29/23 12:54
Discharge Date and Time
Discharge Date/Time: 10/29/23 16:45
Print Language: VENEZUELAN
[2023-10-29 14:12] VITALS: BP 141/66
[2023-10-29 16:30] VITALS: BP 136/80
== END 2023-10-29 16:45 | disposition home or self-care (01) ==
LOC: EMR 10:55
PROVIDERS: EMERGENCY PHYSICIAN Student in an Organized Health Care Education/Training Program; FAMILY PHYSICIAN Internal Medicine
DX: K59.00 Constipation, unspecified (principal); R11.0 Nausea; K51.90 Ulcerative colitis, unspecified, without complications; I25.10 Atherosclerotic heart disease of native coronary artery without angina pectoris; I10 Essential (primary) hypertension; E78.5 Hyperlipidemia, unspecified; N40.0 Benign prostatic hyperplasia without lower urinary tract symptoms; Z93.3 Colostomy status; Z79.899 Other long term (current) drug therapy; Z79.82 Long term (current) use of aspirin; Z87.891 Personal history of nicotine dependence; Z98.0 Intestinal bypass and anastomosis status; Z88.6 Allergy status to analgesic agent; Z88.8 Allergy status to other drugs, medicaments and biological substances
CPT/HCPCS: 99285; 74177; 80053; 81003; 83690; 85025; 93005; Q9967

== ENCOUNTER → 2023-11-19 06:18 | Day surgery (SDC) | payer MEDICARE, SELFPAY | LOC: GI 06:18 | PROVIDERS: ATTENDING PHYSICIAN Internal Medicine | DX: Z12.11 Encounter for screening for malignant neoplasm of colon (principal); K51.50 Left sided colitis without complications; D12.2 Benign neoplasm of ascending colon; K63.5 Polyp of colon; R12 Heartburn; K44.9 Diaphragmatic hernia without obstruction or gangrene; Z98.0 Intestinal bypass and anastomosis status; K29.50 Unspecified chronic gastritis without bleeding | CPT/HCPCS: 45380; 43239; 88305; 88342 ==

== ENCOUNTER → 2024-01-28 14:52 | Outpatient (REF) | payer MEDICARE, SELFPAY | LOC: RAD 14:52 | PROVIDERS: ATTENDING PHYSICIAN Internal Medicine | DX: M17.0 Bilateral primary osteoarthritis of knee (principal) | CPT/HCPCS: 73564 ==

== ENCOUNTER → 2024-05-24 13:40 | Outpatient (REF) | payer MEDICARE, SELFPAY | LOC: RCS 13:40 | PROVIDERS: ATTENDING PHYSICIAN Internal Medicine Cardiovascular Disease; FAMILY PHYSICIAN Internal Medicine | DX: I35.0 Nonrheumatic aortic (valve) stenosis (principal) | CPT/HCPCS: 93306 ==